=== PATIENT | male | born 1935 | race Caucasian/White ===

== ENCOUNTER → 2016-04-28 | Outpatient (CLI) | payer OTHER, BC ==
[~2016-04-28] VITALS: Ht 185.4 cm; Wt 82.4 kg
[~2016-04-28] MED LIST: FLOMAX0.4 MG PO; NORCO 5-325 TA1 EACH PO
--- NOTE | ~2016-04-28 | HPC ---
[facility] [place] [address] [address] PAIN MANAGEMENT CONSULTATION Name: JESSICA CRUM Room #: REG OSMIN HerringLibertyColleen.#: [id number] Admission: 04/28/16 Attend Phys: Lacho Leary MD Discharge: Date of : 37 Report #: [id number] THIS REPORT FOR: //name// CC: JOSEPH Leary DATE OF SERVICE: 04/28/2016 Followup visit for low back pain with radiculopathy, severe spinal stenosis L2-L3. The patient returns to pain clinic today to discuss further treatment. At the last visit, we discussed the possibility of an epidural injection going forward for his symptoms of radiculopathy. He provided me today with his workup from the [facility] in [place]. They provided an assessment based upon 7 diagnoses. They still down basically these 7 diagnoses list lumbar radiculopathy on the right related to spinal stenosis, degenerative changes of the sacroiliac joint, trochanteric bursitis and lumbar facet pain. The most prominent symptoms, however, at this time are pain into the right groin, right-sided hip flexor weakness and radiating pain through the L4 distribution bilaterally with numbness into the medial aspect of both feet. We discussed the possibility of an epidural injection above the level of the tight stenosis of L3-L4 and he would like to proceed today with an injection. This may provide relief of both pain and numbness. 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 Questions regarding the epidural injection were asked and answered. PHYSICAL EXAMINATION: Moves from sitting to standing position, ambulates without antalgic features. His blood pressure is 139/74, heart rate 60, respirations 14. He has weakness, trying to cross his right leg over the left and this also causes some groin pain. He has some mild weakness and asymmetry with hip flexion as well. There is no tenderness over the trochanter. There is no tenderness over the sacroiliac joint. Straight leg raising reproduces mild symptoms into the L4 distribution. He has some numbness in the medial aspect of both feet. IMPRESSION: Lumbar radiculopathy related to spinal stenosis. There is neural foraminal stenosis on the right at L2-L3 consistent with symptoms as well as central stenosis of a severe nature at L3-L4 which would result in some L4 nerve compression and symptoms there. PROCEDURE: Epidural steroid injection under fluoroscopic guidance at L2-L3. [facility] [address] [place] [address] PAIN MANAGEMENT CONSULTATION Name: JESSICA CRUM Room #: REG YANA Angela#: [id number] Admission: 04/28/16 Attend Phys: Lacho Leary MD Discharge: Date of : 37 Report #: [id number] The patient was taken to fluoroscopic suite, placed prone, skin prepped with ChloraPrep. Skin anesthetized over L2-L3 and a 20-gauge Tuohy epidural needle advanced in the epidural space with loss of resistance technique. There was no blood nor CSF aspirated; 1 mL of Omnipaque injected with excellent spread of dye observed in the epidural space followed by 3 mL of 0.5% lidocaine mixed with 80 mg triamcinolone. He tolerated the procedure well and was observed for 45 minutes and discharged. A consultation with Harpreet Orosco was provided for education program and to provide for strengthening of the right leg where he has narrowing. I discussed the possibility of additional procedures with him, although I would strongly recommend against a decompressive laminectomy at this time and use it only as last resort. There have been some talks at the [facility] procedure may be coming back. If this is true, he would likely be an excellent candidate given his single level stenosis related to the ligamentum thickening. I would like him to wait to see if this procedure shows at the next year or so. By: [id number] Lacho Leary MD /nt
[2016-04-28 11:03] VITALS: BP 139/74
== END | disposition home or self-care (01) ==
LOC: PAIN 07:05
DX: M54.16 Radiculopathy, lumbar region (principal); M48.06 Spinal stenosis, lumbar region

== ENCOUNTER → 2016-06-08 | Outpatient (CLI) | payer OTHER, BC ==
[~2016-06-08] VITALS: Ht 185.4 cm; Wt 83.5 kg
[~2016-06-08] MED LIST changes: +ASPIR 8181 MG PO; +VITAMIN D1000 UNI1 PO
--- NOTE | ~2016-06-08 | HPC ---
[facility] [place] [address] [address] [place] [address] PAIN MANAGEMENT CONSULTATION Name: JESSICA CRUM Room #: REG OSMIN Real.#: [id number] Admission: 06/08/16 Attend Phys: Lacho Leary MD Discharge: Date of : 37 Report #: [id number] THIS REPORT FOR: //name// CC: Jv Leary DATE OF SERVICE: 06/08/2016 Followup visit for low back pain with radiculopathy and severe 2 mm spinal stenosis at the level of L3-L4. I am seeing the patient back in the clinic today and he has had limit response to epidural injection provided. He has now had 2 injections provided by providers, neither one providing lasting relief. We reviewed his ongoing pain as radicular in nature and follows dermatomal distributions below the level of L3-L4 where he has quite severe narrowing. The report is noted to suggest the AP dimension of the thecal sac at 0.2 cm. At L2-L3 at 0.6 and L1-L2 at 0.8. The 0.2 is quite significant and as suspected this is resulting in his symptoms of radiculopathy. We would like to consider other options for treatment other than surgery. I briefly had mentioned minimally invasive lumbar decompression to him at last visit, which may be making a resurgence. I have also referred him to Dr. Gui Wilkins for consideration of a microscopic laminectomy with resection of ligamentum flavum in the area of his severe stenosis. Today's discussion was mostly informational, no injection was performed. I spent about 25 minutes with the patient today in consultation. Plan to call him back after I have discussed his case further with Dr. Wilkins and also perhaps with Dr. Webb, who informed me that minimally invasive lumbar decompression may be returning. I discussed the possibility that this procedure might not be covered by Medicare and consider experimental, but he is eager to seek out some sort of treatment that does not require a surgical intervention. He is reluctant to take medication. I third epidural injection I can provide for him, but given his current poor response to first 2 treatments, we will hold off until we discuss other options for treatment with colleagues. I gave him my own cell phone number to [facility] [place] [address] PAIN MANAGEMENT CONSULTATION Name: RADAMESJESSICA Room #: REG [facility].#: [id number] Admission: 06/08/16 Attend Phys: Lacho Leary MD Discharge: Date of : 37 Report #: [id number] call me later in the week if he does not hear back and I will make sure to make good effort to discuss his case. By: [id number] Lacho Leary MD /nt
[2016-06-08 14:17] VITALS: BP 128/75
== END | disposition home or self-care (01) ==
LOC: PAIN 11:21
DX: M48.06 Spinal stenosis, lumbar region (principal); G89.29 Other chronic pain